=== PATIENT | female | born 2000 | race Caucasian/White ===

== ENCOUNTER → 2020-11-13 13:35 | Outpatient (BNVA) | payer BC, SELFPAY | PROVIDERS: Family Provider Family Medicine; Visit Provider Obstetrics & Gynecology | DX: Z12.4 Encounter for screening for malignant neoplasm of cervix (principal) | CPT/HCPCS: 88175 ==

== ENCOUNTER 2021-05-24 18:30 | Emergency (ER) | payer BC, SELFPAY ==
[2021-05-24 19:14] VITALS: BP 128/82; PULSE 97; RESP 18; TEMP 36.9; O2SAT 97; BMI 24.9
--- NOTE | 2021-05-24 19:40 | XRR_ITS ---
PROCEDURE INFORMATION: Exam: XR Chest Exam date and time: 05/24/2021 7:40 PM Age: 21 years old Clinical indication: Cough; Additional info: Cough. Covid + TECHNIQUE: Imaging protocol: XR of the chest. Views: 1 view. COMPARISON: No relevant prior studies available. FINDINGS: Lungs: Unremarkable. No consolidation. Pleural spaces: Unremarkable. No pleural effusion. No pneumothorax. Heart/Mediastinum: Unremarkable. No cardiomegaly. Bones/joints: Unremarkable. XR/XR chest 1V portable [id number] IMPRESSION: No acute disease.
--- NOTE | 2021-05-24 23:43 | ED_ITS ---
HPI - General Adult General: Chief complaint: General Medical Stated complaint: SOB/COVID + Time Seen by Provider: 05/24/21 23:32 History of Present Illness: HPI narrative: Patient is a 21-year-old female comes to the ED with Covid symptoms. Patient tested positive for Covid on Friday, May 21. She says her symptoms started on Friday, May 20. She has had a fever, chills, body aches, cough and some shortness of breath. She says her cough is dry and nonproductive and it has gotten better over the last couple days. Patient says she has gotten one of the Covid vaccines approximately 2 weeks ago. Associated symptoms: Reports dyspnea; Deny chest pain, headache(s), nausea, rash, palpitations or vomiting Review of Systems 2 Const: Reports: fever(s), chills and body aches; Denies: fatigue Eyes: Denies: change in vision or eye discomfort ENMT: Denies: throat pain, odynophagia, nasal discharge or nasal congestion Card: Denies: chest pain, palpitations, edema, swelling of feet/ankles, dyspnea on exertion or orthopnea Resp: Reports: dyspnea and non-productive cough; Denies: productive cough GI: Denies: abdominal pain, nausea, vomiting, diarrhea, constipation or hematochezia : Denies: flank pain, dysuria or hematuria Musc: Denies: neck pain, back pain or extremity swelling Skin/Breast: Denies: rash or new lesions Neuro: Denies: headache(s), numbness in extremities or weakness in extremities [facility] ED PFSH: Medical History Screening for cervical cancer Family History Grandmother Hypertension Denies family history of Colon cancer Ovarian cancer Diabetes Clotting disorder Heart disease Hyperlipidemia Breast cancer Bleeding disorder Uterine cancer Stroke Social History Smoking and tobacco status: never smoked Alcohol intake: current Alcohol intake frequency: holidays/special occasions only Alcohol type: beer and wine Physical Exam Const: COMMON NORMALS: no acute distress, patient oriented x3, healthy appeari ng and alert GENERAL APPEARANCE: cooperative and comfortable HENMT: COMMON NORMALS: normocephalic HEAD & SCALP: normocephalic MOUTH: Normal oral and palatal mucosa present THROAT: posterior oropharynx normal and uvula midline Eye: COMMON NORMALS: Equal, round and reactive pupils present PUPIL: Yes Equal, round and reactive pupils present Neck/C-Spine: COMMON NORMALS: supple GENERAL: Yes normal visual inspection Resp: COMMON NORMALS: normal respiratory effort, No retractions, No use of accessory muscles and clear to auscultation bilaterally EFFORT & INSPECTION: Yes able to speak in complete sentences, No tachypneic, No respiratory distress and No labored AUSCULTATION: clear to auscultation bilaterally Cardio: COMMON NORMALS: regular rate, regular rhythm, S1 normal heart sound present, S2 normal heart sound present, No gallops present (Cardio), No clicks present (Cardio), No murmurs present (Cardio) and Peripheral pulses 2+ throughout RATE: regular rate RHYTHM: regular rhythm HEART SOUNDS: S1 normal heart sound present and S2 normal heart sound present PERIPHERAL PULSES: Peripheral pulses 2+ throughout GI: COMMON NORMALS: Normal to inspection, nondistended, normoactive bowel sounds present, Soft to palpation, non-tender and no masses PALPATION: Yes Soft to palpation : COMMON NORMALS: Yes no CVA tenderness BLADDER/KIDNEY EXAM: Yes no CVA tenderness Back/Pelvis: COMMON NORMALS: no CVA tenderness Extremity: COMMON NORMALS: normal to inspection Neuro: COMMON NORMALS: patient oriented x3 and moves all extremities SENSORIUM/ORIENTATION: Yes alert Skin: GENERAL SKIN EXAM: dry skin Course Vital Signs: Vital signs: Vital Signs Temperature 98.4 F 05/24/21 19:14 Pulse Rate 87 05/24/21 23:44 Respiratory Rate 18 05/24/21 23:44 Blood Pressure 116/89 05/24/21 23:44 Pulse Oximetry 100 05/24/21 23:44 MDM - General Adult MDM Narrative: Medical decision making narrative: Patient is a healthy 21-year-old female comes to the ED with Covid symptoms and tested positive for COVID-19 on May 21. Patient received one of the COVID-19 vaccinations 2 weeks ago. Vitals are stable O2 saturation above 97% on room air and respirations are normal. Chest x-ray showed no signs of pneumonia. Patient diagnosed with COVID-19 and is stable for discharge home. She was told to follow-up with her PCP in 7 days for reevaluation. She is given self quarantine instructions. Return ED precautions given. Patient understood agree with plan. Imaging Data^: CXR: Attestation: I personally reviewed and interpreted this imaging study as follows: My impression: Chest x-ray?no acute findings or pneumonia seen. Discharge Plan Discharge Patient Disposition: Home Clinical Impression: COVID-19 Condition: Stable Prescriptions: No Action No Known Home Medications RF: 0 Discharge Orders: Discharge ED (Routine); Ordered 05/25/21 Ordered By: Bruno Hernández Discharge Diet: Regular Discharge Activity: Increase activity as tolerated Patient Instructions: Viral Syndrome (ED) Activity Restrictions/Additional Instructions: Follow-up with medical provider as directed in 7 days for reevaluation. Continue self quarantine for approximately 10 days from the day of onset of symptoms. Take [id number] Tylenol or Motrin for fevers. Drink plenty of fluids and stay hydrated. Return to the ER or your medical provider if condition worsens. Please read and understand discharge instructions. Thank you for choosing [facility] for your healthcare needs today. Please realize this is an emergency room and that we are providing you with a medical screening exam and this may not be complete and all inclusive of all the testing and or work up that you may need to determine your ailment or severity of your illness. It is very important that you follow up as instructed or that you return to the Emergency Department should you have concerns or if your condition changes or worsens in any way. Coding Level of Care Code ED Steam Cleaner for Milana Juarez Exam Comprehensive
[2021-05-24 23:44] VITALS: BP 116/89; PULSE 87; RESP 18; O2SAT 100
== END 2021-05-25 00:13 | disposition home or self-care (01) ==
PROVIDERS: Emergency Provider Physician Assistant
DX: U07.1 COVID-19 (principal)
CPT/HCPCS: 71045; 99282

== ENCOUNTER 2021-08-25 21:40 | Emergency (ER) | payer BC, SELFPAY ==
[2021-08-25 21:43] VITALS: BP 155/81; PULSE 119; RESP 19; TEMP 37.1; O2SAT 97; BMI 25.4
--- NOTE | 2021-08-25 21:45 | ED_ITS ---
Documented by User: AKBAR Sierra 08/26/21 02:08 HPI - Abdominal Pain General: Chief Complaint: Abdominal Pain Stated Complaint: ABD Pain Time Seen by Provider: 08/25/21 21:45 History of Present Illness: HPI narrative: 21-year-old female comes in today with suprapubic abdominal pain that started this afternoon. Patient felt that the pain may have been due to her beginning menstrual cycle but the pain was worse than normal. Patient appears well. Patient appears in moderate pain. Patient denies any abnormal vaginal discharge, no vaginal bleeding, no fever, no nausea vomiting or diarrhea. Review of Systems General: Reports: 10 or more systems reviewed and unremarkable except in HPI and below GI: Reports: abdominal pain PFSH ED PFSH: Medical History Screening for cervical cancer Family History Grandmother Hypertension Denies family history of Colon cancer Ovarian cancer Diabetes Clotting disorder Heart disease Hyperlipidemia Breast cancer Bleeding disorder Uterine cancer Stroke Social History Smoking and tobacco status: never smoked Alcohol intake: current Alcohol intake frequency: holidays/special occasions only Alcohol type: beer and wine Physical Exam Const: COMMON NORMALS: no acute distress and patient oriented x3 GENERAL APPEARANCE: cooperative HENMT: COMMON NORMALS: normocephalic and Normal external nose present HEAD & SCALP: normal to inspection and normocephalic NOSE: Normal external nose present MOUTH: Normal oral and palatal mucosa present THROAT: posterior oropharynx normal Eye: GENERAL EYE: appearance normal, both eyes and all related structures Neck/C-Spine: COMMON NORMALS: full ROM Chest: COMMONS NORMALS: normal inspection of the chest Resp: COMMON NORMALS: normal respiratory effort EFFORT & INSPECTION: Yes able to speak in complete sentences Cardio: COMMON NORMALS: regular rate and regular rhythm RATE: regular rate RHYTHM: regular rhythm GI: COMMON NORMALS: Soft to palpation AUSCULTATION: Yes normoactive bowel sounds PALPATION: Yes Soft to palpation and Yes Tenderness to palpation present (GI) (Suprapubic) : COMMON NORMALS: Yes no CVA tenderness BLADDER/KIDNEY EXAM: Yes no CVA tenderness Back/Pelvis: COMMON NORMALS: no CVA tenderness and thoracic and lumbar spine normal to inspection Extremity: COMMON NORMALS: normal to inspection Neuro: COMMON NORMALS: patient oriented x3 and moves all extremities Psych: COMMON NORMALS: mental status grossly normal and cooperative Skin: COMMON NORMALS: no rashes or lesions noted GENERAL SKIN EXAM: no rashes or lesions noted Course ED course: 0200, reviewed patient's CT and ultrasound. We note a ruptured o varian cyst with possibly some blood in the pelvis. Good blood flow is noted to most ovaries. He believes patient can be discharged to home with follow-up with primary care on Friday for recheck of blood count and follow-up with [facility] next week. Case management consult was placed for [facility] follow-up. Vital Signs: Vital signs: Vital Signs Temperature 98.7 F 08/25/21 21:43 Pulse Rate 96 08/26/21 02:07 Respiratory Rate 18 08/26/21 02:07 Blood Pressure 118/65 08/26/21 02:07 Pulse Oximetry 98 08/26/21 02:07 MDM - Abdominal Pain MDM Narrative: Medical decision making narrative: Patient came in tonight with complaints of suprapubic pain which she listed to the beginning of her menstrual cycle. Exam noted suprapubic abdominal tenderness. Vital signs were normal except for some elevation in blood pressure and pulse. Skin was warm and dry. Respirations were even. Differential diagnosis includes but not limited to urinary tract infection, appendicitis, ovarian torsion, constipation. Laboratory values noted a 13,000 white count, CMP was unremarkable, urinalysis was normal. CT of abdomen noted complex cyst and fluid in the pelvis recommending a ultrasound. Ultrasound indicated for centimeter complex left adnexal cyst. With some fluid or blood in the pelvis. Reviewed exam with Dr. Lindsey who recommended that patient be followed up on Friday for a repeat CBC and follow-up with [facility] next week. Patient will be covered with some hydrocodone for pain. Patient was recommended to drink plenty of fluids and monitor for worsening symptoms such as high fever or persistent worsening pain. Lab Data: Labs: Lab Results 08/25/21 08/25/21 08/25/21 21:50 21:50 21:50 WBC 13.0 10^3/uL H 10 ^3/uL (4.0-10.0) RBC 4.26 10^6/uL 10^6 /uL (4.1-5.3) Hgb 12.9 g/dL g/dL (11.5-15.3) Hct 38.3 % % (37.0-47.0) MCV 89.9 fl fl (81-99) MCH 30.3 pg pg (28.0-34.0) MCHC 33.7 g/dL g/dL (30.0-36.0) RDW 11.9 % L % (12.1-15.1) Plt Count 237 10^3/cmm 10^3 /cmm (130-400) MPV 10.4 fL fL (7.4-10.4) Neut % (Auto) 73.1 % % Lymph % (Auto) 17.3 % % [place] % (Auto) 7.6 % % Eos % (Auto) 0.8 % % Baso % (Auto) 0.7 % % Neut # (Auto) 9.53 10^3/uL H 10 ^3/uL (1.8-7.7) Lymph # (Auto) 2.3 10^3/uL 10^3/ uL (0.8-4.8) [place] # (Auto) 1.0 10^3/uL H 10^ 3/uL (0.2-0.9) Eos # (Auto) 0.1 10^3/uL 10^3/ uL (0.0-0.8) Baso # (Auto) 0.1 10^3/uL 10^3/ uL (0.0-0.1) Nucleated RBC % (a uto) 0 % % Nucleated RBCs # 0.0 /100WBC /100W BC Sodium 139 mmol/L mmol/L (136-145) Potassium 3.8 mmol/L mmol/L (3.5-5.1) Chloride 103 mmol/L mmol/L (98-107) Carbon Dioxide 26 mmol/L mmol/L (22-29) Anion Gap 13.8 (5-19) BUN 13 mg/dL mg/dL (6-20) Creatinine 0.4 mg/dL L mg/dL (0.5-0.9) GFR Calculation 197.8 mL/min H mL /min (90-130) Glucose 96 mg/dL mg/dL (65-115) Calculated Osmolal ity 288 mOsm/kg mOsm/ kg (285-295) Calcium 9.2 mg/dL mg/dL (8.5-10.5) Total Bilirubin 0.2 mg/dL mg/dL (0.15-1.2) AST 20 U/L U/L (0-32) ALT 12 U/L U/L (0-33) Alkaline Phosphata se 52 IU/L IU/L (35-105) Total Protein 7.0 g/dL g/dL (6.6-8.7) Albumin 4.5 g/dL g/dL (3.5-5.2) Globulin 2.5 g/dL g/dL (1.3-4.6) Lipase 12 U/L L U/L (13-60) HCG, Qual Negative (Negative) Urine Color Urine Appearance Urine pH Ur Specific Gravit y Urine Protein Urine Glucose (UA) Urine Ketones Urine Blood Urine Nitrate Urine Bilirubin Urine Urobilinogen Ur Leukocyte Wendi ase Urine RBC Urine WBC Ur Squamous Epith Cells Amorphous Sediment Urine Bacteria Urine Mucus 08/25/21 22:15 WBC RBC Hgb Hct MCV MCH MCHC RDW Plt Count MPV Neut % (Auto) Lymph % (Auto) [place] % (Auto) Eos % (Auto) Baso % (Auto) Neut # (Auto) Lymph # (Auto) [place] # (Auto) Eos # (Auto) Baso # (Auto) Nucleated RBC % (a uto) Nucleated RBCs # Sodium Potassium Chloride Carbon Dioxide Anion Gap BUN Creatinine GFR Calculation Glucose Calculated Osmolal ity Calcium Total Bilirubin AST ALT Alkaline Phosphata se Total Protein Albumin Globulin Lipase HCG, Qual Urine Color Yellow (Yellow) Urine Appearance Clear (CLEAR) Urine pH 5 (5-7) Ur Specific Gravit y 1.025 (1.005-1.030) Urine Protein Neg (Negative) Urine Glucose (UA) Norm (Normal) Urine Ketones Negative (Negative) Urine Blood 2+ H (Negative) Urine Nitrate Negative (Negative) Urine Bilirubin Neg (Negative) Urine Urobilinogen Norm mg/dL mg/dL (Negative) Ur Leukocyte Wendi ase Negative (Negative) Urine RBC 0-4 /hpf H /hpf (0-2) Urine WBC 0-4 /hpf H /hpf (0-5) Ur Squamous Epith Cells 0-4 /hpf H /hpf (0-5) Amorphous Sediment Not Reportable Urine Bacteria Trace /hpf /hpf (NONE) Urine Mucus 1+ /hpf /hpf Discharge Plan Discharge Patient Disposition: Home Clinical Impression: Rupture of ovarian cyst Condition: Stable Prescriptions: New hydrocodone-acetaminophen 5-325 mg tablet 1 tab PO Q6H PRN (Reason: Pain (Scale Score 7-10)) Qty: 7 RF: 0 ibuprofen 600 mg tablet 600 mg PO Q6H PRN (Reason: pain) Qty: 30 RF: 0 Discharge Orders: Discharge ED (Routine); Ordered 08/26/21 Ordered By: Austin Meyers Discharge Diet: Usual diet Discharge Activity: Increase activity as tolerated Patient Instructions: Ruptured Ovarian Cyst (ED), Opioid Safety Activity Restrictions/Additional Instructions: Drink plenty of water. Use acetaminophen and ibuprofen to control pain. Use hydrocodone for breakthrough pain. Follow-up with primary care on Friday for repeat CBC. Case management will contact you regarding a follow-up with [facility] [employer], Dr. Moreira. Return to the emergency department for worsening symptoms such as high fever greater than 100.4, uncontrolled pain, or new concerns. Stand Alone Forms: Work/School Release Coding Level of Care Code ED Business Analyst Manager for Chg Fwd Exam Comprehensive Documented by User: George Lindsey DO 08/26/21 03:43 HPI - Abdominal Pain General: Chief Complaint: Abdominal Pain Stated Complaint: ABD Pain Time Seen by Provider: 08/25/21 21:45 PFSH ED PFSH: Medical History Screening for cervical cancer Family History Grandmother Hypertension Denies family history of Colon cancer Ovarian cancer Diabetes Clotting disorder Heart disease Hyperlipidemia Breast cancer Bleeding disorder Uterine cancer Stroke Social History Smoking and tobacco status: never smoked Alcohol intake: current Alcohol intake frequency: holidays/special occasions only Alcohol type: beer and wine Course Vital Signs: Vital signs: Vital Signs Temperature 98.7 F 08/25/21 21:43 Pulse Rate 96 08/26/21 02:07 Respiratory Rate 18 08/26/21 02:07 Blood Pressure 118/65 08/26/21 02:07 Pulse Oximetry 98 08/26/21 02:07 MDM - Abdominal Pain MDM Narrative: Medical decision making narrative: This patient was originally seen by AKBAR Sim. I agree with his history, evaluation, and treatment. Lab Data: Labs: Lab Results 08/25/21 08/25/21 08/25/21 21:50 21:50 21:50 WBC 13.0 10^3/uL H 10 ^3/uL (4.0-10.0) RBC 4.26 10^6/uL 10^6 /uL (4.1-5.3) Hgb 12.9 g/dL g/dL (11.5-15.3) Hct 38.3 % % (37.0-47.0) MCV 89.9 fl fl (81-99) MCH 30.3 pg pg (28.0-34.0) MCHC 33.7 g/dL g/dL (30.0-36.0) RDW 11.9 % L % (12.1-15.1) Plt Count 237 10^3/cmm 10^3 /cmm (130-400) MPV 10.4 fL fL (7.4-10.4) Neut % (Auto) 73.1 % % Lymph % (Auto) 17.3 % % [place] % (Auto) 7.6 % % Eos % (Auto) 0.8 % % Baso % (Auto) 0.7 % % Neut # (Auto) 9.53 10^3/uL H 10 ^3/uL (1.8-7.7) Lymph # (Auto) 2.3 10^3/uL 10^3/ uL (0.8-4.8) [place] # (Auto) 1.0 10^3/uL H 10^ 3/uL (0.2-0.9) Eos # (Auto) 0.1 10^3/uL 10^3/ uL (0.0-0.8) Baso # (Auto) 0.1 10^3/uL 10^3/ uL (0.0-0.1) Nucleated RBC % (a uto) 0 % % Nucleated RBCs # 0.0 /100WBC /100W BC Sodium 139 mmol/L mmol/L (136-145) Potassium 3.8 mmol/L mmol/L (3.5-5.1) Chloride 103 mmol/L mmol/L (98-107) Carbon Dioxide 26 mmol/L mmol/L (22-29) Anion Gap 13.8 (5-19) BUN 13 mg/dL mg/dL (6-20) Creatinine 0.4 mg/dL L mg/dL (0.5-0.9) GFR Calculation 197.8 mL/min H mL /min (90-130) Glucose 96 mg/dL mg/dL (65-115) Calculated Osmolal ity 288 mOsm/kg mOsm/ kg (285-295) Calcium 9.2 mg/dL mg/dL (8.5-10.5) Total Bilirubin 0.2 mg/dL mg/dL (0.15-1.2) AST 20 U/L U/L (0-32) ALT 12 U/L U/L (0-33) Alkaline Phosphata se 52 IU/L IU/L (35-105) Total Protein 7.0 g/dL g/dL (6.6-8.7) Albumin 4.5 g/dL g/dL (3.5-5.2) Globulin 2.5 g/dL g/dL (1.3-4.6) Lipase 12 U/L L U/L (13-60) HCG, Qual Negative (Negative) Urine Color Urine Appearance Urine pH Ur Specific Gravit y Urine Protein Urine Glucose (UA) Urine Ketones Urine Blood Urine Nitrate Urine Bilirubin Urine Urobilinogen Ur Leukocyte Wendi ase Urine RBC Urine WBC Ur Squamous Epith Cells Amorphous Sediment Urine Bacteria Urine Mucus 08/25/21 22:15 WBC RBC Hgb Hct MCV MCH MCHC RDW Plt Count MPV Neut % (Auto) Lymph % (Auto) [place] % (Auto) Eos % (Auto) Baso % (Auto) Neut # (Auto) Lymph # (Auto) [place] # (Auto) Eos # (Auto) Baso # (Auto) Nucleated RBC % (a uto) Nucleated RBCs # Sodium Potassium Chloride Carbon Dioxide Anion Gap BUN Creatinine GFR Calculation Glucose Calculated Osmolal ity Calcium Total Bilirubin AST ALT Alkaline Phosphata se Total Protein Albumin Globulin Lipase HCG, Qual Urine Color Yellow (Yellow) Urine Appearance Clear (CLEAR) Urine pH 5 (5-7) Ur Specific Gravit y 1.025 (1.005-1.030) Urine Protein Neg (Negative) Urine Glucose (UA) Norm (Normal) Urine Ketones Negative (Negative) Urine Blood 2+ H (Negative) Urine Nitrate Negative (Negative) Urine Bilirubin Neg (Negative) Urine Urobilinogen Norm mg/dL mg/dL (Negative) Ur Leukocyte Wendi ase Negative (Negative) Urine RBC 0-4 /hpf H /hpf (0-2) Urine WBC 0-4 /hpf H /hpf (0-5) Ur Squamous Epith Cells 0-4 /hpf H /hpf (0-5) Amorphous Sediment Not Reportable Urine Bacteria Trace /hpf /hpf (NONE) Urine Mucus 1+ /hpf /hpf Discharge Plan Discharge Patient Disposition: Home Clinical Impression: Rupture of ovarian cyst Condition: Stable Prescriptions: New hydrocodone-acetaminophen 5-325 mg tablet 1 tab PO Q6H PRN (Reason: Pain (Scale Score 7-10)) Qty: 7 RF: 0 ibuprofen 600 mg tablet 600 mg PO Q6H PRN (Reason: pain) Qty: 30 RF: 0 Discharge Orders: Discharge ED (Routine); Ordered 08/26/21 Ordered By: Austin Meyers Discharge Diet: Usual diet Discharge Activity: Increase activity as tolerated Patient Instructions: Ruptured Ovarian Cyst (ED), Opioid Safety Activity Restrictions/Additional Instructions: Drink plenty of water. Use acetaminophen and ibuprofen to control pain. Use hydrocodone for breakthrough pain. Follow-up with primary care on Friday for repeat CBC. Case management will contact you regarding a follow-up with [facility] [employer], Dr. Moreira. Return to the emergency department for worsening symptoms such as high fever greater than 100.4, uncontrolled pain, or new concerns. Stand Alone Forms: Work/School Release Coding Level of Care Code ED Business Analyst Manager for Jose Eg Fwd Exam Comprehensive
--- NOTE | 2021-08-25 21:58 | CTR_ITS ---
PROCEDURE INFORMATION: Exam: CT Abdomen And Pelvis With Contrast Exam date and time: 08/25/2021 9:58 PM Age: 21 years old Clinical indication: Abdominal pain; Localized; Patient HX: C/O lower abd/pelvic pain; Additional info: Suprapubic pain TECHNIQUE: Imaging protocol: Computed tomography of the abdomen and pelvis with contrast. Radiation optimization: All CT scans at this facility use at least one of these dose optimization techniques: automated exposure control; mA and/or kV adjustment per patient size (includes targeted exams where dose is matched to clinical indication); or iterative reconstruction. Contrast material: OMNI 300; Contrast volume: 95 ml; Contrast route: INTRAVENOUS (IV); COMPARISON: [facility] Follow up [facility] 09/24/2016 10:27 AM RADIATION DOSE METRICS: Total DLP (mGy-cm): 1130.3 FINDINGS: Liver: Normal. No mass. Gallbladder and bile ducts: Normal. No calcified stones. No ductal dilation. Pancreas: Normal. No ductal dilation. Spleen: Normal. No splenomegaly. Adrenal glands: Normal. No mass. Kidneys and ureters: Normal. No hydronephrosis. Stomach and bowel: Unremarkable. No obstruction. No mucosal thickening. Appendix: No evidence of appendicitis. Intraperitoneal space: There is a moderate amount of free intraperitoneal fluid in the abdomen and pelvis. There is some internal complexity within this fluid. Vasculature: Unremarkable. No abdominal aortic aneurysm. Lymph nodes: Unremarkable. No enlarged lymph nodes. Urinary bladder: Unremarkable as visualized. Reproductive: There is a complex cystic lesion in intimate association with the bilateral ovaries which is obscured by adjacent complex fluid however appears to measure approximately 7.6 cm in AP dimension. Bones/joints: Unremarkable. No acute fracture. Soft tissues: Unremarkable. CT/CT abdomen pelvis w con* [id number] IMPRESSION: 1. There is a complex cystic lesion which is in intimate association with the bilateral ovaries. Pelvic ultrasound is recommended for further evaluation. 2. There is a moderate amount of free intraperitoneal fluid in the abdomen and pelvis with internal complexity. Radiation Dose CTDIVOL = (mGy): DLP = 1130.3 (mGy-cm)
[2021-08-25 22:23] LABS: Basophils # 0.1 10^3/uL (0.0-0.1); Basophils % 0.7 %; Eosinophils # 0.1 10^3/uL (0.0-0.8); Eosinophils % 0.8 %; Hematocrit 38.3 % (37.0-47.0); Hemoglobin 12.9 g/dL (11.5-15.3); Lymphocytes # 2.3 10^3/uL (0.8-4.8); Lymphocytes % 17.3 %; Mean Corpuscular HGB Conc 33.7 g/dL (30.0-36.0); Mean Corpuscular Hemoglobin 30.3 pg (28.0-34.0); Mean Corpuscular Volume 89.9 fl (81-99); Mean Platelet Volume 10.4 fL (7.4-10.4); Monocytes % 7.6 %; Neutrophils # 9.53 10^3/uL (1.8-7.7); Neutrophils % 73.1 %; Nucleated Red Blood Cells % 0 %; Platelet Count 237 10^3/cmm (130-400); Red Blood Count 4.26 10^6/uL (4.1-5.3); Red Cell Distribution Width 11.9 % (12.1-15.1)
[2021-08-25] MEDS: sodium chloride 0.9% 1,000 ML 999 ML IV (22:24)
[2021-08-25] MEDS: ondansetron 2 mg/ML SDV 2 mL 4 MG IVP (22:24)
[2021-08-25] MEDS: ketorolac 30 mg/mL INJ 15 MG IVP (22:26)
[2021-08-25 22:33] LABS: HCG, Serum Qual Negative (Negative)
[2021-08-25 22:38] LABS: Alanine Aminotransferase 12 U/L (0-33); Albumin Level 4.5 g/dL (3.5-5.2); Alkaline Phosphatase 52 IU/L (35-105); Anion Gap 13.8 (5-19); Aspartate Amino Transferase 20 U/L (0-32); Blood Urea Nitrogen 13 mg/dL (6-20); Calcium 9.2 mg/dL (8.5-10.5); Carbon Dioxide 26 mmol/L (22-29); Chloride 103 mmol/L (98-107); Globulin 2.5 g/dL (1.3-4.6); Glomerular Filtration Rate 197.8 mL/min (90-130); Glucose 96 mg/dL (65-115); Lipase 12 U/L (13-60); Osmolality Calculated 288 mOsm/kg (285-295); Potassium 3.8 mmol/L (3.5-5.1); Sodium 139 mmol/L (136-145); Total Bilirubin 0.2 mg/dL (0.15-1.2)
[2021-08-25 22:39] LABS: Add Urine Culture? No; Add Urine Microscopic? YES; Bacteria Urine TRACE /hpf; Bilirubin Urine Neg (Negative); Blood Urine 2+ (Negative); Glucose Urine UA Norm (Normal); Ketones Urine Negative (Negative); Leukocyte Esterase Urine Negative (Negative); Mucus Urine 1+ /hpf; Nitrate Urine Negative (Negative); Protein Urine Neg (Negative); RBC Urine 0-4 /hpf (0-2); Specific Gravity, Urine 1.025 (1.005-1.030); Squamous Epithelial Cell Urine 0-4 /hpf (0-5); Urine Appearance Clear (CLEAR); Urine Color Yellow (Yellow); Urobilinogen Urine Norm (Negative); WBC Urine 0-4 /hpf (0-5); pH Urine 5 (5-7)
[2021-08-25 22:49] VITALS: RESP 18
[2021-08-25] MEDS: morphine 4 mg/mL SDV 1 mL 2 MG IVP (22:49)
[2021-08-25] MEDS: iohexol 300 mg/mL 100 mL Btl IV (23:24)
--- NOTE | 2021-08-25 23:46 | PC.NURSE ---
report to Marsha LATHAM
[2021-08-25 23:51] VITALS: BP 138/59; PULSE 101; RESP 19; O2SAT 99
[2021-08-26] MEDS: fentaNYL 50 mcg/mL INJ 2mL IVP (00:15)
[2021-08-26] MEDS: HYDROcodone-acetaminophen 7.5-325 mg Tablet 1 TAB PO (02:02)
[2021-08-26 02:07] VITALS: BP 118/65; PULSE 96; RESP 18; O2SAT 98
--- NOTE | 2021-08-26 23:53 | USR_ITS ---
PROCEDURE INFORMATION: Exam: US Duplex Artery or Vein of the Abdominal and/or Reproductive Organs, Limited Exam date and time: 08/26/2021 11:53 PM Age: 21 years old Clinical indication: Pelvic pain; Patient HX: Pelvic mass on CT; Additional info: Suprapubic pain, abnormal CT, concern for ovarian torsion TECHNIQUE: Imaging protocol: Real-time duplex ultrasound scan of the arterial or venous flow of the abdomen and/or reproductive organs, with color Doppler flow and spectral waveform analysis with image documentation. Exam focused on the region of clinical interest. Duplex images were received to evaluate vascular conditions. COMPARISON: CT abdomen pelvis w con* [id number] 08/25/2021 11:22 PM FINDINGS: The uterus measures 8.3 cm in length. There is no visible focal myometrial mass. There is no intrauterine fluid. Endometrial thickness is 12-13 mm. The right ovary measures 33 x 24 x 27 mm. The right ovary appears essentially unremarkable. Approximately 4 cm complex appearing cyst in the left adnexal region, presumably involving the left ovary. I think the surrounding left ovary itself is somewhat enlarged, measuring up to 50 x 40 x 45 mm in overall diameter. Additional mixed echogenic tissue/fluid around and adjacent to the presumed ovary suspicious for hematoma, measuring up to 5 cm in diameter. A physiologic/hemorrhagic cyst is likely in this young age group, although other etiologies are not excluded. As clinically directed, follow up ultrasound may be useful to evaluate for resolution of a physiologic cyst, and to guard against a persistent/enlarging lesion/neoplasm. Moderate to large amount of cul-de-sac and free pelvic fluid. The fluid is echogenic, and is suspicious for peritoneal blood/clot. The earlier CT scan also showed high attenuation fluid/blood in the pelvis and in the upper abdomen. The CT also shows some very high attenuation fluid posterior to the left adnexal cyst, suspicious for active extravasation of contrast/active bleeding. This overall appearance may be related to ovarian cyst rupture and/or hemorrhage. Please correlate clinically. Blood flow detected within the right ovary, and in the presumed ovarian tissue around the left adnexal cyst. Presence of ovarian blood flow does not entirely exclude torsion, as ovarian torsion is often intermittent, and the ovaries have dual blood supply. Ultrasound is not always definitive in excluding ovarian torsion, so clinical judgment will still be needed. Please correlate clinically. The urinary bladder was not completely evaluated/imaged at this time. Endovaginal scanning provided better visualization/evaluation of the endometrium and ovaries/adnexal regions, as discussed above. IMPRESSION: 1. 4 cm complex left adnexal/ovarian cyst, see above details. 2. Large amount of suspected blood/clot in the pelvis. 3. This overall appearance raises suspicion for ovarian cyst rupture and/or hemorrhage. Please see additional details/discussion above. 4. Blood flow detected in each ovary, see above discussion. 5. Other details discussed above. PROCEDURE INFORMATION: Exam: US Pelvis, Transvaginal Exam date and time: 08/26/2021 11:53 PM Age: 21 years old Clinical indication: Pelvic pain; Patient HX: Pelvic mass on CT; Additional info: Suprapubic pain, abnormal CT, concern for ovarian torsion TECHNIQUE: Imaging protocol: Real-time transvaginal pelvic ultrasound with image documentation. Transvaginal imaging was used for better evaluation of the endometrium, adnexa, and/or cervix. COMPARISON: CT abdomen pelvis w con* [id number] 08/25/2021 11:22 PM FINDINGS: The uterus measures 8.3 cm in length. There is no visible focal myometrial mass. There is no intrauterine fluid. Endometrial thickness is 12-13 mm. The right ovary measures 33 x 24 x 27 mm. The right ovary appears essentially unremarkable. Approximately 4 cm complex appearing cyst in the left adnexal region, presumably involving the left ovary. I think the surrounding left ovary itself is somewhat enlarged, measuring up to 50 x 40 x 45 mm in overall diameter. Additional mixed echogenic tissue/fluid around and adjacent to the presumed ovary suspicious for hematoma, measuring up to 5 cm in diameter. A physiologic/hemorrhagic cyst is likely in this young age group, although other etiologies are not excluded. As clinically directed, follow up ultrasound may be useful to evaluate for resolution of a physiologic cyst, and to guard against a persistent/enlarging lesion/neoplasm. Moderate to large amount of cul-de-sac and free pelvic fluid. The fluid is echogenic, and is suspicious for peritoneal blood/clot. The earlier CT scan also showed high attenuation fluid/blood in the pelvis and in the upper abdomen. The CT also shows some very high attenuation fluid posterior to the left adnexal cyst, suspicious for active extravasation of contrast/active bleeding. This overall appearance may be related to ovarian cyst rupture and/or hemorrhage. Please correlate clinically. Blood flow detected within the right ovary, and in the presumed ovarian tissue around the left adnexal cyst. Presence of ovarian blood flow does not entirely exclude torsion, as ovarian torsion is often intermittent, and the ovaries have dual blood supply. Ultrasound is not always definitive in excluding ovarian torsion, so clinical judgment will still be needed. Please correlate clinically. The urinary bladder was not completely evaluated/imaged at this time. Endovaginal scanning provided better visualization/evaluation of the endometrium and ovaries/adnexal regions, as discussed above. US/US transvaginal [id number] IMPRESSION: 1. 4 cm complex left adnexal/ovarian cyst, see above details. 2. Large amount of suspected blood/clot in the pelvis. 3. This overall appearance raises suspicion for ovarian cyst rupture and/or hemorrhage. Please see additional details/discussion above. 4. Blood flow detected in each ovary, see above discussion. 5. Other details discussed above. Radiation Dose CTDIVOL = (mGy): DLP = (mGy-cm)
--- NOTE | 2021-08-28 15:11 | DCPLANNER ---
leave manager had message to schedule a follow up appointment for patient with [facility]. leave manager called [facility], spoke with Mike, gave clinic patients information. A follow up appointment was scheduled for Friday, September 03, 2021 at 2:[address] Moreira. Clinic will call patient with appointment information.
--- NOTE | 2021-09-06 08:32 | DCPLANNER ---
Patient had an appointment scheduled for 09.03.21 with [facility] - appointment was moved to 08.30.21 - patient did attend appointment.
== END 2021-08-26 02:09 | disposition home or self-care (01) ==
PROVIDERS: Emergency Provider Nurse Practitioner Family
DX: N83.209 Unspecified ovarian cyst, unspecified side (principal)
CPT/HCPCS: 74177; 76830; 80053; 81001; 83690; 84703; 85025; 96361; 96374; 96375; 99284; E0352; J1885; J2270; J2405; J3010; J7030; Q9967

== ENCOUNTER 2021-08-27 13:07 | Outpatient (CLI) | payer BC, SELFPAY ==
[2021-08-27 13:34] LABS: Basophils # 0.1 10^3/uL (0.0-0.1); Basophils % 0.6 %; Eosinophils # 0.1 10^3/uL (0.0-0.8); Hematocrit 32.9 % (37.0-47.0); Hemoglobin 10.9 g/dL (11.5-15.3); Lymphocytes # 1.8 10^3/uL (0.8-4.8); Lymphocytes % 21.2 %; Mean Corpuscular HGB Conc 33.1 g/dL (30.0-36.0); Mean Corpuscular Volume 90.6 fl (81-99); Monocytes # 0.7 10^3/uL (0.2-0.9); Neutrophils # 5.96 10^3/uL (1.8-7.7); Nucleated Red Blood Cells % 0 %; Platelet Count 201 10^3/cmm (130-400); Red Blood Count 3.63 10^6/uL (4.1-5.3); Red Cell Distribution Width 11.9 % (12.1-15.1); White Blood Count 8.6 10^3/uL (4.0-10.0)
== END 2021-08-27 13:08 | disposition home or self-care (01) ==
LOC: LAB 13:09
PROVIDERS: Visit Provider Nurse Practitioner Family
DX: N83.209 Unspecified ovarian cyst, unspecified side (principal)
CPT/HCPCS: 85025

== ENCOUNTER → 2021-08-30 12:42 | Outpatient (BNVA) | payer BC, SELFPAY | PROVIDERS: Visit Provider Obstetrics & Gynecology | DX: N83.202 Unspecified ovarian cyst, left side (principal) | CPT/HCPCS: 76830 ==

== ENCOUNTER → 2021-12-03 15:19 | Outpatient (BNVA) | payer BC, SELFPAY | PROVIDERS: Visit Provider Obstetrics & Gynecology | DX: Z12.4 Encounter for screening for malignant neoplasm of cervix (principal) | CPT/HCPCS: 88175 ==

== ENCOUNTER → 2023-01-22 15:08 | Outpatient (BNVA) | payer BC, SELFPAY | PROVIDERS: Visit Provider Obstetrics & Gynecology | DX: Z12.4 Encounter for screening for malignant neoplasm of cervix (principal) | CPT/HCPCS: 88175 ==

== ENCOUNTER → 2023-02-03 12:20 | Outpatient (BNVA) | payer BC, SELFPAY | PROVIDERS: Visit Provider Obstetrics & Gynecology | DX: N83.201 Unspecified ovarian cyst, right side (principal) | CPT/HCPCS: 76830 ==

== ENCOUNTER 2024-06-12 11:39 | Inpatient (IN) | payer OTHER, SELFPAY ==
[2024-06-12] VITALS (63 sets, daily range): BP systolic 91–134; BP diastolic 46–83; PULSE 86–123; RESP 17; TEMP 36.3–37.8; O2SAT 98–100; BMI 31.7
[2024-06-12 12:07] LABS: Basophils # 0.1 10^3/uL (0.0-0.1); Basophils % 0.4 %; Eosinophils # 0.1 10^3/uL (0.0-0.8); Eosinophils % 0.7 %; Hematocrit 32.8 % (36-47); Lymphocytes # 1.6 10^3/uL (0.8-4.8); Lymphocytes % 14.5 %; Mean Corpuscular Hemoglobin 26.1 pg (27-33); Mean Corpuscular Volume 81.6 fl (85-98); Mean Platelet Volume 12.1 fL (7.4-10.4); Monocytes # 0.9 10^3/uL (0.2-0.9); Monocytes % 8.4 %; Neutrophils # 8.41 10^3/uL (1.8-7.7); Neutrophils % 75.6 %; Nucleated Red Blood Cells % 0 %; Platelet Count 180 10^3/cmm (157-399); Red Blood Count 4.02 10^6/uL (3.85-5.65); Red Cell Distribution Width 13.3 % (12.1-15.1); White Blood Count 11.14 10^3/uL (3.29-11.43)
[2024-06-12] MEDS: miSOPROStol 100 mcg tablet 25 MCG SUBLINGUAL (12:28)
[2024-06-12] MEDS: lactated ringers 1,000 ML 999 ML IV ×2 (17:39→18:44)
[2024-06-12 17:42] LABS: Nitrazine Paper, PH Positive
[2024-06-12] MEDS: fentaNYL 50 mcg/mL INJ 2mL IVP (17:45)
--- NOTE | 2024-06-12 18:39 | P.ANESASSM_ITS ---
Pre-Anesthetic Assessment Height/Weight: Height 1.63 m Weight 83.915 kg Temp Pulse Resp BP O2 Del Method 98.3 F 93 17 132/76 Room Air 06/12/24 16:16 06/12/24 17:17 06/12/24 17:45 06/12/24 17:17 06/12/24 11:54 Preop Diagnosis: labor pain epidural Familial anesthetic complications: none Was Beta Hortencia taken within 24 hours: N/A Was Clonidine taken within 24 hours: N/A Social No alcohol and No tobacco Exam alert, oriented x 3, clear to auscultation bilaterally and regular rate & rhythm Airway Submandibular: within normal limits Cervical ROM: within normal limits Mallampati: Class II Dentition: full Pulmonary Asthma (as a kid) CV/HEM None reported None reported Hepatic None reported GI Gastroesophageal Reflux Disease Metabolic None reported Musc/skel None reported Neuropsych None reported Anesthetic Plan ASA status: 2 Medications/Allergies Home Medications Medication Instructions Recorded Confirmed Last Taken Type No Known Home Medications 12/03/21 01/22/23 Unknown History Allergies Allergy/AdvReac Type Severity Reaction Status Date / Time No Known Allergies Allergy Verified 01/22/23 13:57 Current Medications Generic Name Dose Route Start Last Admin Trade Name Freq PRN Reason Stop Dose Admin Fentanyl 25 - 100 mcg 06/12/24 11:43 06/12/24 17:45 Fentanyl 50 Mcg/Ml Inj 2ml IVP 25 mcg Q1H PRN Administration SEVERE PAIN Lactated Ringer's 1,000 mls @ 999 mls/hr 06/12/24 12:09 06/12/24 17:39 Lactated Ringers IV 999 mls/hr .Q1H1M PRN Administration See label comments PFSH Anesthesia Medical History Screening for cervical cancer Surgical History History of tonsillectomy Family History Grandmother Hypertension Denies family history of Colon cancer Ovarian cancer Diabetes Clotting disorder Heart disease Hyperlipidemia Breast cancer Bleeding disorder Uterine cancer Stroke Social History Substance/Drug Use: never Female Reproductive History : 2 Data Anesthesia 06/12/24 11:45 Short CBC 06/12/24 Range/Units 11:45 WBC 11.14 (3.29-11.43) 10^3/uL Hgb 10.50 L (11.27-16.99) g/dL Hct 32.8 L (36-47) % MCV 81.6 L (85-98) fl Plt Count 180 (157-399) 10^3/cmm Neut % (Auto) 75.6 % Neut # (Auto) 8.41 H (1.8-7.7) 10^3/uL Blood Bank 06/12/24 11:45 Blood Type O Positive Rho(D) Type Rh positive Antibody Screen Negative Cardiac Studies: 2 No Data to Display
[2024-06-12] MEDS: ROPivacaine syringe 100 MG/50 ML SYRINGE 13 MG EPIDURAL ×2 (19:39→22:11)
--- NOTE | 2024-06-12 19:44 | ANES.PROC ---
Anesthesia Procedures Procedure/Date: 06/12/24 epidural Procedure Narrative: 2nd epidural complete, first epidural completed and patient stated left sided pain continues. Bolus was given with no change. replacing epidural was discussed and patient agreed to replace. First epidural catheter removed with blue tip intact. bolus given, epidural pump initiated with DIAL REFINISHER education given, vitals taken during procedure and satisfactory throughout, patient admits to decrease pain, report of procedure to OB RN Epidural: Time Out Performed: Yes Consents Signed: Procedure Consent Consent: requested by attending/covering physician, from patient, risks and benefits reviewed and patient agrees to proceed Lumbar Level: L2-L3 Epidural position: sitting Epidural procedure: sterile prep of area, 1% lidocaine to numb the area (4 mL), 18 g needle, negative for paresthesia passed, neg for paresthesia, test dose given, 1.5% xylocaine 1:200k epi (5 mL), 0.2% Ropivacaine bolus ml (5 mL), placed PCEA, no systemic response, sterile dressing applied, L.U.D. no apparent complications and 0.2% Ropiavacaine @ mls/hr (13 mL/hr)
[2024-06-12] MEDS: dextrose 5%-lactated ringers 1,000 ML 125 ML IV (20:10)
[2024-06-12] MEDS: ondansetron 2 mg/ML SDV 2 mL 4 MG IVP (20:33)
[2024-06-12] MEDS: acetaminophen 325 mg Tablet 650 MG PO (22:37)
[2024-06-12] MEDS: oxytocin 30 UNIT/500 ML BAG 600 UNIT IV (23:13)
--- NOTE | 2024-06-12 23:37 | PM.OPHPUD ---
Labor & Delivery H&P Update Date of Procedure: June 12, 2024 Date H&P Performed: 06/09/24 Changes to previous documentation: Spontaneous rupture of membranes Admission Diagnosis: 24-year-old female with previous twin presenting at 37 weeks gestation with spontaneous rupture of membranes Preop diagnosis: labor pain Planned procedure: Spontaneous vaginal delivery Other information: The patient is an otherwise healthy 24-year-old female who presents to the hospital today with spontaneous rupture membranes. That occurred shortly before arriving at the hospital. Otherwise she has no complaints. She is having some mild contractions but otherwise is fine. Her has been unremarkable. Her blood work has also been relatively unremarkable. Her blood type is O+. Her antibody screen was negative. She passed her glucose screen. Her GBS status is negative. Rubella is immune. The remainder of her infectious disease profile is within normal limits. Related Problem List Diagnoses (1) 37 weeks gestation of : (2) Spontaneous rupture of membranes: A&P Assessment and plan (1) 37 weeks gestation of : I anticipate routine labor and care. Status: Acute (2) Spontaneous rupture of membranes: Status: Acute
--- NOTE | 2024-06-12 23:43 | PM.DELIVERY ---
Delivery Note: Date of delivery: June 12, 2024 Pre-delivery diagnoses: 24-year-old 2 para 2-0-0-2 at 37 weeks and 3 days estimated gestational age with spontaneous rupture membranes Post-delivery diagnoses: Status post spontaneous vaginal delivery Procedure: Spontaneous vaginal delivery Delivering Physician: Sree Callejas Estimated blood loss (mL): 100 Pre-Delivery Course: The patient presented to the hospital with spontaneous rupture membranes. She was not having consistent contractions. Cytotec 25 mcg sublingual was ordered. An epidural was placed. She progressed to complete without difficulty. Delivery: DELIVERY: The patient progressed to complete without difficulty. She delivered a male with a weight of 7 pounds 9 ounces with Apgars of 8, 8. The baby was delivered from the AMBERLY position and placed on the mother's abdomen. The cord was then clamped and cut. There was a nuchal cord x 1. The baby was delivered through the nuchal cord at time of delivery.. There was no meconium. The placenta and 3 vessel cord were delivered intact shortly thereafter. The perineum and vaginal vault were carefully examined. She was noted to have bilateral vaginal wall lacerations. The laceration on her right side continued to bleed. A single [id number] stitch was placed. The bleeding stopped.. Both the mother and the baby were in stable condition. Post-Delivery Status: Good History History History 1 Term 0 2 Miscarriages/Ectopic 0 Living Children 2 A&P Assessment and plan (1) Spontaneous vaginal delivery: I anticipate routine care Coding Level of Care Code Acute Code for Chg Fwd Diagnoses Spontaneous vaginal delivery O80
[2024-06-13] VITALS (15 sets, daily range): BP systolic 100–127; BP diastolic 55–65; PULSE 83–129; RESP 16; TEMP 36.8–38.4
[2024-06-13] MEDS: HYDROcodone-acetaminophen 5-325 mg Tablet PO (02:24)
--- NOTE | 2024-06-13 08:00 | ANE.PACU2 ---
Inpatient post-anesthesia follow up: Airway intact: Yes Vital signs: Temperature 98.4 F Pulse Rate 83 Respiratory Rate 16 Blood Pressure 112/60 Pulse Oximetry 100 Oxygen Delivery Me thod Room Air Oxygen Flow Rate Fraction of Inspir ed Oxygen Hydration adequate: Yes Nausea and vomiting: No Pain level: 1 Mental status: Baseline Epidural Start/End: Epidural Start Date: 06/12/24 Epidural Start Time: 18:47 Epidural End Date: 06/13/24 Epidural End Time: 01:25
[2024-06-13] MEDS: PRENATAL VIT NO.130/IRON/FOLIC 1 EACH TABLET PO (08:04)
[2024-06-13] MEDS: docusate sodium 100 mg Capsule PO (08:04)
[2024-06-13] MEDS: ibuprofen 800 mg tablet PO ×2 (08:04→15:12)
--- NOTE | 2024-06-13 12:50 | P.DS_ITS ---
Discharge Providers SPA EXPERIENCE COORDINATOR Date of Admission: 06/12/24 11:39 Date of Discharge: 06/13/24 Attending Provider at Admission: Sree Callejas MD Attending Provider at Discharge: Sree Callejas MD Diagnoses at Discharge Discharge Diagnosis (1) Spontaneous vaginal delivery: Status: Acute Reason for Visit Reason for Visit: Poss. AMADOR Hospital Course Hospital Course The patient presented to the hospital with spontaneous rupture membranes. Cytotec 25 mcg was placed. An epidural was placed. She progressed to complete without difficulty. She pushed through 2 contractions. She delivered her baby from a vertex position without difficulty. She received a single [id number] stitch in her right vaginal wall. Otherwise her delivery was unremarkable. Her course was also unremarkable. Her bleeding was within normal limits. She breast-fed well. Her pain was well-controlled. There were no concerns. Information Peripartum Data: Infant Delivery Method: Vaginal Physical Exam Narrative: The patient is alert. She appears comfortable. Her heart has a regular rate and rhythm with no murmurs appreciated. Lungs are clear to auscultation bilaterally. Her fundus is firm and below the umbilicus. Urinary Catheter Management: Nice Latex: Cath Placed During This Visit: yes, but has since been removed by the nurse Reason for Continuing Indwelling Catheter: Decision to DC Catheter Urinary Catheter Date of Insertion: 06/12/24 Urinary Catheter Time of Insertion: 20:00 Date Urinary Catheter Removed: 06/12/24 Time Urinary Catheter Discontinued: 23:04 History History History 2 Term 0 2 Miscarriages/Ectopic 0 Living Children 2 Discharge Data Studies Completed and Pending Pending at discharge Category Date Time Status Hemagram Timed Lab 06/13/24 11:49 Uncollected Laboratory Results WBC 11.14 10^3/uL (3.29-11.43) 06/12/24 11:45 RBC 4.02 10^6/uL (3.85-5.65) 06/12/24 11:45 Hgb 10.50 g/dL (11.27-16.99) L 06/12/24 11:45 Hct 32.8 % (36-47) L 06/12/24 11:45 MCV 81.6 fl (85-98) L 06/12/24 11:45 MCH 26.1 pg (27-33) L 06/12/24 11:45 MCHC 32.0 g/dL (30-55) 06/12/24 11:45 RDW 13.3 % (12.1-15.1) 06/12/24 11:45 Plt Count 180 10^3/cmm (157-399) 06/12/24 11:45 MPV 12.1 fL (7.4-10.4) H 06/12/24 11:45 Neut % (Auto) 75.6 % 06/12/24 11:45 Lymph % (Auto) 14.5 % 06/12/24 11:45 [place] % (Auto) 8.4 % 06/12/24 11:45 Eos % (Auto) 0.7 % 06/12/24 11:45 Baso % (Auto) 0.4 % 06/12/24 11:45 Neut # (Auto) 8.41 10^3/uL (1.8-7.7) H 06/12/24 11:45 Lymph # (Auto) 1.6 10^3/uL (0.8-4.8) 06/12/24 11:45 [place] # (Auto) 0.9 10^3/uL (0.2-0.9) 06/12/24 11:45 Eos # (Auto) 0.1 10^3/uL (0.0-0.8) 06/12/24 11:45 Baso # (Auto) 0.1 10^3/uL (0.0-0.1) 06/12/24 11:45 Nucleated RBC % (auto) 0 % 06/12/24 11:45 Nucleated RBCs # 0.0 /100WBC 06/12/24 11:45 Fluid pH (paper) Positive H 06/12/24 11:30 Blood Type O Positive 06/12/24 11:45 Rho(D) Type Rh positive 06/12/24 11:45 Antibody Screen Negative 06/12/24 11:45 Vitals Last Vital Signs Temp 98.3 F 06/13/24 02:30 Pulse 96 06/13/24 08:04 Resp 17 06/12/24 17:45 BP 113/60 06/13/24 08:04 Pulse Ox 100 06/12/24 20:05 O2 Del Method Room Air 06/12/24 11:54 Results Labs OB ([facility]): Blood Type O Positive 06/12/24 Antibody Screen Negative 06/12/24 Hct 32.8 % (36-47) L 06/12/24 Hgb 10.50 g/dL (11.27-16.99) L 06/12/24 Rho(D) Type Rh positive 06/12/24 Plt Count 180 10^3/cmm (157-399) 06/12/24 HCG, Qual Negative (Negative) 08/25/21 Pap Smear Interpret See note 01/22/23 Discharge Plan Discharge Patient Disposition: Home Condition: Stable Prescriptions: New ibuprofen 800 mg Tablet 800 mg PO TID Qty: 45 0RF Continued 28-800 mg-mcg Tablet 1 tab PO DAILY Discharge Orders: Discharge Order (Routine); Ordered 06/13/24 Ordered By: Sree Callejas Referrals: Sree Callejas MD [Physician] - 6 Weeks Discharge Diet: Usual diet Discharge Activity: Limit activity as instructed Patient Instructions: Depression (DC), Opioid Safety (DC), Preeclampsia and Eclampsia After Delivery (GEN), Hemorrhage (DC), OB Discharge Report, OB Food/Drug Interaction Guide, OB Care at Home, Opioid Safety, OB Vaginal Deliveries, Abnormal Bleeding Discharge Attestations SPA EXPERIENCE COORDINATOR Time Spent in Discharge Care*: less than 30 min Coding Level of Care Code Acute Code for Chg Fwd Diagnoses Spontaneous vaginal delivery O80
[2024-06-13 13:54] LABS: Mean Corpuscular HGB Conc 32.1 g/dL (30-55); Mean Corpuscular Hemoglobin 26.3 pg (27-33); Mean Corpuscular Volume 81.9 fl (85-98); Mean Platelet Volume 11.7 fL (7.4-10.4); Platelet Count 162 10^3/cmm (157-399); Red Blood Count 3.54 10^6/uL (3.85-5.65); Red Cell Distribution Width 13.4 % (12.1-15.1); White Blood Count 16.05 10^3/uL (3.29-11.43)
== END 2024-06-13 15:21 | disposition home or self-care (01) | DRG 806 ==
LOC: OPOB 11:41 → OBGYN 11:41
PROVIDERS: Admitting Provider Family Medicine; Visit Provider Family Medicine
DX: O42.02 Full-term premature rupture of membranes, onset of labor within 24 hours of rupture (principal); O71.4 Obstetric high vaginal laceration alone; Z37.0 Single live birth; O69.81X0 Labor and delivery complicated by cord around neck, without compression, not applicable or unspecified; O99.62 Diseases of the digestive system complicating childbirth; K92.89 Other specified diseases of the digestive system; K21.9 Gastro-esophageal reflux disease without esophagitis; Z3A.37 37 weeks gestation of pregnancy
CPT/HCPCS: 36415; 51702; 59025; 59409; 83986; 85025; 85027; 86850; 86900; 96374; 99211; J2405; J2590; J2795; J3010; J7120; J7121

== ENCOUNTER 2025-04-12 19:19 | Emergency (ER) | payer MEDICAID, SELFPAY ==
[2025-04-12 19:40] VITALS: BP 126/73; PULSE 101; RESP 16; TEMP 37.6; O2SAT 100
[2025-04-12 19:48] LABS: Basophils % 0.8 %; Eosinophils # 0.1 10^3/uL (0.0-0.8); Eosinophils % 2.1 %; Hematocrit 39.4 % (36-47); Lymphocytes % 20.5 %; Mean Corpuscular HGB Conc 32.7 g/dL (30-55); Mean Corpuscular Hemoglobin 29.1 pg (27-33); Mean Corpuscular Volume 88.7 fl (85-98); Mean Platelet Volume 9.8 fL (7.4-10.4); Monocytes # 0.7 10^3/uL (0.2-0.9); Monocytes % 14.9 %; Neutrophils # 2.96 10^3/uL (1.8-7.7); Neutrophils % 61.5 %; Nucleated Red Blood Cells % 0 %; Platelet Count 158 10^3/cmm (157-399); Red Blood Count 4.44 10^6/uL (3.85-5.65); Red Cell Distribution Width 12.5 % (12.1-15.1); White Blood Count 4.82 10^3/uL (3.29-11.43)
[2025-04-12 20:06] LABS: Alanine Aminotransferase 13 U/L (0-33); Albumin Level 4.4 g/dL (3.5-5.2); Alkaline Phosphatase 110 U/L (35-105); Anion Gap 16.8 (5-19); Aspartate Amino Transferase 20 U/L (0-32); Blood Urea Nitrogen 9 mg/dL (6-20); Calcium 9.5 mg/dL (8.5-10.5); Carbon Dioxide 24 mmol/L (22-29); Chloride 102 mmol/L (98-107); Creatinine Clr Calc Pharmacy 161.6308; Globulin 3.3 g/dL (1.3-4.6); Glucose 87 mg/dL (65-115); HCG, Serum Qual Negative (Negative); Lipase 17 U/L (13-60); Osmolality Calculated 286 mOsm/kg (285-295); Potassium 3.8 mmol/L (3.5-5.1); Sodium 139 mmol/L (136-145); Total Bilirubin 0.3 mg/dL (0.15-1.2); Total Protein 7.7 g/dL (6.6-8.7)
--- NOTE | 2025-04-12 20:57 | W.ED.ABDPA2 ---
HPI - Abdominal Pain General: Chief Complaint: Abdominal Pain Stated Complaint: lower abd pain Time Seen by Provider: 04/12/25 20:57 History of Present Illness: 25-year-old female who presents to the emergency room with abdominal pain. Said she had diarrhea for couple of days and that has since resolved but then she started to have lower abdominal pain today. Complains of suprapubic central abdominal pain. Does not localize. She has had some nausea but no vomiting. Normal intake. Related Data Home Medications ?Medication ?Instructions ?Recorded ?Confirmed vit no.133-ferrous 1 tab PO DAILY 06/12/24 06/12/24 fumarate 28 mg-folic acid 800 mcg tablet () Previous Rx's ?Medication ?Instructions ?Recorded ibuprofen 800 mg tablet 800 mg PO TID #45 tabs 06/13/24 diclofenac sodium 50 mg 50 mg PO BID PRN pain #14 tabs 04/12/25 tablet,delayed release ondansetron 4 mg disintegrating 4 mg PO Q8H PRN nausea and 04/12/25 tablet vomiting #10 tabs Allergies Allergy/AdvReac Type Severity Reaction Status Date / Time No Known Allergies Allergy Verified 06/12/24 21:04 Review of Systems Narrative: Constitutional symptoms: Negative except as documented in HPI. Skin symptoms: Negative except as documented in HPI. Eye symptoms: Negative except as documented in HPI. ENMT symptoms: Negative except as documented in HPI. Respiratory symptoms: Negative except as documented in HPI. Cardiovascular symptoms: Negative except as documented in HPI. Gastrointestinal symptoms: Negative except as documented in HPI. Genitourinary symptoms: Negative except as documented in HPI. Musculoskeletal symptoms: Negative except as documented in HPI. Neurologic symptoms: Negative except as documented in HPI. Psychiatric symptoms: Negative except as documented in HPI. Endocrine symptoms: Negative except as documented in HPI. PFSH ED PFSH: Medical History Screening for cervical cancer Surgical History History of tonsillectomy Family History Grandmother Hypertension Denies family history of Colon cancer Ovarian cancer Diabetes Clotting disorder Heart disease Hyperlipidemia Breast cancer Bleeding disorder Uterine cancer Stroke Social History Substance/Drug Use: never Physical Exam Narrative: EXAM NARRATIVE: General: Alert, no acute distress. Skin: Warm, dry. Head: Normocephalic, atraumatic. Neck: Supple, trachea midline. Eye: Extraocular movements are intact. Ears, nose, mouth and throat: mucosa moist. Cardiovascular: Regular, Normal peripheral perfusion. Respiratory: Lungs are clear to auscultation, respirations are non-labored, breath sounds are equal, Symmetrical chest wall expansion. Gastrointestinal: Soft, suprapubic tenderness palpation, Non distended Musculoskeletal: Normal ROM, no deformity. Neurological: Alert and oriented, No focal neurological deficit observed. Psychiatric: Cooperative, appropriate mood & affect. Course Vital Signs: Vital signs: Vital Signs Temperature 99.6 F 04/12/25 19:40 Pulse Rate 85 04/12/25 22:58 Respiratory Rate 16 04/12/25 22:58 Blood Pressure 108/64 04/12/25 22:58 Pulse Oximetry 97 04/12/25 22:58 Oxygen Delivery Me thod Room Air 04/12/25 21:22 MDM - Abdominal Pain Medical Decision Making Medical decision making: Differential diagnosis including but not limited to and based on the above HPI, review of systems and physical exam: Low abdominal pain would have concern for urinary tract infection, gastroenteritis, etc. orders placed to evaluate differential diagnosis based on the above differential, HPI and physical exam Lab Review: Laboratory results were reviewed and interpreted by myself the emergency room physician. No leukocytosis. No anemia. No renal failure. Urinalysis is negative for infection but urine is quite concentrated which would indicate dehydration. CT of the abdomen pelvis with contrast: No acute process. See additional findings below. This was reviewed and interpreted by myself the emergency room physician. I also reviewed the radiology report. I reviewed the patient's medical record. Reexamination: Patient says the pain is improved quite a bit after receiving pain medicines. Patient remained stable. No increased work of breathing. No altered mental status. No focal motor deficits. Assessment and plan: Abdominal pain Dehydration ?IV Toradol, IV Zofran and IV fluids - Discharged home - Discussed plan with patient. Answered any questions. - Evaluation and treatment of this problem were appropriate in the emergency setting. Lab Data 04/12/25 19:38 04/12/25 19:38 Labs/Radiology: Radiology Impressions Abdomen/Pelvis CT 04/12/25 20:58 IMPRESSION: 1. No acute findings. 2. There is swirling of the central mesenteric vessels which can signify predisposition for mesenteric volvulus Laboratory Results WBC 4.82 10^3/uL (3.29-11.43) 04/12/25 19:38 RBC 4.44 10^6/uL (3.85-5.65) 04/12/25 19:38 Hgb 12.90 g/dL (11.27-16.99) 04/12/25 19:38 Hct 39.4 % (36-47) 04/12/25 19:38 MCV 88.7 fl (85-98) 04/12/25 19:38 MCH 29.1 pg (27-33) 04/12/25 19:38 MCHC 32.7 g/dL (30-55) 04/12/25 19:38 RDW 12.5 % (12.1-15.1) 04/12/25 19:38 Plt Count 158 10^3/cmm (157-399) 04/12/25 19:38 MPV 9.8 fL (7.4-10.4) 04/12/25 19:38 Neut % (Auto) 61.5 % 04/12/25 19:38 Lymph % (Auto) 20.5 % 04/12/25 19:38 [place] % (Auto) 14.9 % 04/12/25 19:38 Eos % (Auto) 2.1 % 04/12/25 19:38 Baso % (Auto) 0.8 % 04/12/25 19:38 Neut # (Auto) 2.96 10^3/uL (1.8-7.7) 04/12/25 19:38 Lymph # (Auto) 1.0 10^3/uL (0.8-4.8) 04/12/25 19:38 [place] # (Auto) 0.7 10^3/uL (0.2-0.9) 04/12/25 19:38 Eos # (Auto) 0.1 10^3/uL (0.0-0.8) 04/12/25 19:38 Baso # (Auto) 0.0 10^3/uL (0.0-0.1) 04/12/25 19:38 Nucleated RBC % (auto) 0 % 04/12/25 19:38 Nucleated RBCs # 0.0 /100WBC 04/12/25 19:38 Sodium 139 mmol/L (136-145) 04/12/25 19:38 Potassium 3.8 mmol/L (3.5-5.1) 04/12/25 19:38 Chloride 102 mmol/L (98-107) 04/12/25 19:38 Carbon Dioxide 24 mmol/L (22-29) 04/12/25 19:38 Anion Gap 16.8 (5-19) 04/12/25 19:38 BUN 9 mg/dL (6-20) 04/12/25 19:38 Creatinine 0.5 mg/dL (0.5-0.9) 04/12/25 19:38 GFR Calculation 148.0 mL/min (90-130) H 04/12/25 19:38 Glucose 87 mg/dL (65-115) 04/12/25 19:38 Calculated Osmolality 286 mOsm/kg (285-295) 04/12/25 19:38 Calcium 9.5 mg/dL (8.5-10.5) 04/12/25 19:38 Total Bilirubin 0.3 mg/dL (0.15-1.2) 04/12/25 19:38 AST 20 U/L (0-32) 04/12/25 19:38 ALT 13 U/L (0-33) 04/12/25 19:38 Alkaline Phosphatase 110 U/L (35-105) H 04/12/25 19:38 Total Protein 7.7 g/dL (6.6-8.7) 04/12/25 19:38 Albumin 4.4 g/dL (3.5-5.2) 04/12/25 19:38 Globulin 3.3 g/dL (1.3-4.6) 04/12/25 19:38 Lipase 17 U/L (13-60) 04/12/25 19:38 HCG, Qual Negative (Negative) 04/12/25 19:38 Urine Color Yellow (Yellow) 04/12/25 22:45 Urine Appearance Clear (CLEAR) 04/12/25 22:45 Urine pH 5.5 (5-7) 04/12/25 22:45 Ur Specific [place] 1.097 (1.005-1.030) H 04/12/25 22:45 Urine Protein Trace (Negative) A 04/12/25 22:45 Urine Glucose (UA) Negative (Normal) 04/12/25 22:45 Urine Ketones 1+ (Negative) H 04/12/25 22:45 Urine Blood 2+ (Negative) A 04/12/25 22:45 Urine Nitrate Negative (Negative) 04/12/25 22:45 Urine Bilirubin Negative (Negative) 04/12/25 22:45 Urine Urobilinogen 0.2 mg/dL (Negative) 04/12/25 22:45 Ur Leukocyte Esterase Negative (Negative) 04/12/25 22:45 Urine RBC 0-2 /hpf (0-2) 04/12/25 22:45 Urine WBC 0-5 /hpf (0-5) 04/12/25 22:45 Ur Squamous Epith Cells 0-5 /hpf (0-5) 04/12/25 22:45 Amorphous Sediment Not Reportable 04/12/25 22:45 Urine Bacteria None seen /hpf (NONE) 04/12/25 22:45 Hyaline Casts 0-4 /lpf H 04/12/25 22:45 All radiology interpretation(s) finalized by discharge Discharge Plan Discharge Patient Disposition: Home Clinical Impression: Abdominal pain, Dehydration Condition: Stable Prescriptions: New diclofenac sodium 50 mg tablet,delayed release (DR/EC) 50 mg PO BID PRN (Reason: pain) Qty: 14 0RF ondansetron 4 mg tablet,disintegrating 4 mg PO Q8H PRN (Reason: nausea and vomiting) Qty: 10 0RF No Action 28-800 mg-mcg Tablet 1 tab PO DAILY ibuprofen 800 mg Tablet 800 mg PO TID Qty: 45 0RF Discharge Orders: Discharge ED (Routine); Ordered 04/12/25 Ordered By: Kimberly Smith Discharge Diet: Advance as tolerated Discharge Activity: Increase activity as tolerated Patient Instructions: Abdominal Pain (ED), Opioid Safety, Pain Management Activity Restrictions/Additional Instructions: Thank you for choosing [facility] for your healthcare needs today. You have been screened and evaluated and felt safe for discharge. Health conditions do change or evolve sometimes and as such it is important that you follow up with your Primary Doctor to be re checked, 3-5 days is a general good time frame for follow up. You are always welcome to return to the ED for re assessment if your symptoms are worsening or you have new concerns Print Language: Kyrgyz Coding Level of Care Code ED Safety Deposit Supervisor for Milana Juarez
--- NOTE | 2025-04-12 20:58 | CTR_ITS ---
PROCEDURE INFORMATION: Exam: CT Abdomen And Pelvis With Contrast Exam date and time: 04/12/2025 9:08 PM Age: 25 years old Clinical indication: Abdominal pain; Generalized TECHNIQUE: Imaging protocol: Computed tomography of the abdomen and pelvis with contrast. Radiation optimization: All CT scans at this facility use at least one of these dose optimization techniques: automated exposure control; mA and/or kV adjustment per patient size (includes targeted exams where dose is matched to clinical indication); or iterative reconstruction. Contrast material: OMNIPAQUE 350; Contrast volume: 100 ml; Contrast route: INTRAVENOUS (IV); COMPARISON: CT abdomen pelvis w con* [id number] 08/25/2021 11:22 PM RADIATION DOSE METRICS: Total DLP (mGy-cm): 470 FINDINGS: Lungs: Lung bases are clear. No pleural effusion. Liver: Normal. No mass. Gallbladder and biliary ducts: Normal. No calcified stones. No ductal dilation. Pancreas: Normal. No ductal dilation. Spleen: Normal. No splenomegaly. Adrenal glands: Normal. No mass. Kidneys and ureters: Normal. No hydronephrosis. Stomach and bowel: See Intraperitoneal space finding. Appendix: The appendix is clearly identified and is unremarkable. Intraperitoneal space: There is swirling of the central mesenteric vessels but I see no bowel inflammation or distension. Vasculature: Unremarkable. No abdominal aortic aneurysm. Lymph nodes: Unremarkable. No enlarged lymph nodes. Urinary bladder: Unremarkable as visualized. Reproductive: Unremarkable as visualized. Bones/joints: Unremarkable. No acute fracture. Soft tissues: Unremarkable. CT/CT abdomen pelvis w con* [id number] IMPRESSION: 1. No acute findings. 2. There is swirling of the central mesenteric vessels which can signify predisposition for mesenteric volvulus
[2025-04-12] MEDS: iohexol 350 mg/mL 500 mL Btl (per mL) IV (21:11)
[2025-04-12 21:22] VITALS: BP 126/73; PULSE 92; RESP 20; O2SAT 98
[2025-04-12] MEDS: ketorolac 30 mg/mL INJ IVP (21:30)
[2025-04-12] MEDS: ondansetron 2 mg/ML SDV 2 mL 4 MG IVP (21:30)
[2025-04-12] MEDS: sodium chloride 0.9% 1,000 ML 999 ML IV (21:32)
[2025-04-12 22:58] VITALS: BP 108/64; PULSE 85; RESP 16; O2SAT 97
[2025-04-12 23:00] LABS: Bilirubin Urine Negative (Negative); Blood Urine 2+ (Negative); Glucose Urine UA Negative (Normal); Ketones Urine 1+ (Negative); Leukocyte Esterase Urine Negative (Negative); Nitrate Urine Negative (Negative); Protein Urine Trace (Negative); Urine Appearance Clear (CLEAR); Urine Color Yellow (Yellow); Urobilinogen Urine 0.2 mg/dL (Negative); pH Urine 5.5 (5-7)
[2025-04-12 23:05] LABS: Add Urine Microscopic? YES; Bacteria Urine None Seen /hpf; Hyaline Casts Urine 0-4 /lpf; RBC Urine 0-2 /hpf (0-2); Squamous Epithelial Cell Urine 0-5 /hpf (0-5); WBC Urine 0-5 /hpf (0-5)
[2025-04-12 23:12] LABS: Add Urine Culture? No; Specific Gravity, Urine 1.097 (1.005-1.030)
[2025-04-12 23:43] VITALS: BP 103/65; PULSE 79; RESP 16; O2SAT 97
== END 2025-04-12 23:47 | disposition home or self-care (01) ==
PROVIDERS: Emergency Medicine; Emergency Provider Emergency Medicine
DX: R10.9 Unspecified abdominal pain (principal); E86.0 Dehydration
CPT/HCPCS: 36415; 74177; 80053; 81001; 83690; 84703; 85025; 96374; 96375; 99285; J1885; J2405; J7030